=== PATIENT | female | born 2000 | race Caucasian/White ===

== ENCOUNTER 2019-02-26 13:47 | Day surgery (SDC) | payer BC ==
[2019-02-26] MEDS ORDERED: PROPOFOL 10 MG/ML VIAL IV ONE (13:48)
[2019-02-26] MEDS ORDERED: LIDOCAINE 2% MDV (20MG/ML) 20ML VIAL IV ONE (13:48)
[2019-02-26] MEDS ORDERED: FENTANYL PF 100MCG/2ML VIAL IV ONE (13:48)
--- NOTE | 2019-03-02 08:40 | Operative Note ---
OPERATION: 1. ESOPHAGOGASTRODUODENOSCOPY with random biopsy. 2. COLONOSCOPY with random biopsy. PREOPERATIVE DIAGNOSES: 1. Diarrhea. 2. Weight loss. POSTOPERATIVE DIAGNOSIS: Normal upper and lower endoscopy, rule out occult celiac, rule out occult microscopic colitis, rule out H pylori. PROCEDURE: After informed consent was obtained from the patient and her mother, she was placed in the left lateral decubitus position in the endoscopy suite, sedated and monitored by the department of anesthesia. A well-lubricated [id number] gastroscope was placed in the posterior oropharynx under direct visualization and passed to the proximal esophagus. The endoscope was advanced through the proximal, mid, and distal esophagus. The GE junction, esophagus, gastric body, antrum, pylorus, duodenal bulb and sweep were unremarkable. Random biopsies were obtained from the duodenal sweep and bulb as well as from the gastric body and antrum. J-turn views of the proximal stomach were unrevealing. The endoscope was straightened and retracted from the patient with no new findings noted. Digital rectal exam was unremarkable. The same [id number] gastroscope was inserted into the rectum and advanced into the transverse colon. There was tortuosity and buckling in the colon despite attempts at gently reducing any looping. The patient was placed in the supine position and gentle abdominal pressure was applied. The endoscope was able to be inserted to the cecum without significant pressure being applied to the endoscopy. The cecum, cecal bulb, distal portion of the terminal ileum, ascending colon, transverse colon, descending colon, sigmoid colon, and rectum were unremarkable. Random colonic biopsies were obtained to rule out microscopic colitis. J-turn views of the anorectum were unrevealing. The endoscope was then straightened, the rectal ampulla deflated, and the endoscope was removed. RECOMMENDATIONS: The patient should continue her current medical program. We will await the results of tissue histology before further recommendations are made. As always, thank you for allowing me to participate in the healthcare of your patients. BONITA
== END 2019-02-26 15:25 | disposition home or self-care (01) ==
LOC: HOP 13:47
PROVIDERS: ATTEND Internal Medicine Gastroenterology
DX: R19.7 Diarrhea, unspecified (principal); R63.4 Abnormal weight loss
CPT/HCPCS: 84703